=== PATIENT | female | born 1940 | race Caucasian/White ===

== ENCOUNTER 2016-10-16 16:33 | Observation (INO) | payer MEDICARE ==
[~2016-10-16] VITALS: Ht 157.5 cm; Wt 107.0 kg
[2016-10-16] MEDS ORDERED: ASPIRIN 81MG TABLET PO STA (17:47)
[2016-10-16 18:31] LABS: BASOPHILS % 0.7 % (0.0-2.0); EOSINOPHILS % 1.5 % (0.0-5.0); HEMATOCRIT. 51.5 % (36.0-48.0); HEMOGLOBIN. 17.8 g/dL (12.0-16.0); LYMPHOCYTES % 26.4 % (20.0-50.0); MEAN CORPUSCULAR HEMOGLOBIN 31.2 pg (28.0-32.0); MEAN CORPUSCULAR VOLUME 90.3 fL (81.0-99.0); MEAN PLATELET VOLUME 8.7 fl (7.4-10.4); MONOCYTES % 7.9 % (2.0-8.0); NEUTROPHILS % 63.5 % (40.0-76.0); PLATELET 166 x1000/uL (130-400); RED CELL DISTRIBUTION WIDTH 13.4 % (11.6-14.6)
[2016-10-16 18:33] LABS: CARBON DIOXIDE 27 mEq/L (21-32); CHLORIDE 106 mEq/L (98-107); TROPONIN I < 0.02 ng/mL (0.00-0.04)
[2016-10-16 18:34] LABS: INR 1.7; PARTIAL THROMBOPLASTIN TIME 36.6 sec (24.0-34.0); PROTHROMBIN TIME 17.4 sec
[2016-10-16] MEDS ORDERED: ONDANSETRON HCL 4MG/2ML VIAL IV STA (21:04)
[2016-10-16] MEDS ORDERED: MORPHINE SULFATE 4 MG/ML CPJ (NOT FOR IM USE) IV STA (21:04)
[2016-10-16] MEDS ORDERED: NITROGLYCERIN 0.4MG TABLET SL SL PRN (21:15)
[2016-10-16 22:00] VITALS: BP 135/85
[2016-10-16] MEDS ORDERED: WARF5TAB73 PO (22:19)
[2016-10-16] MEDS ORDERED: DILT120C11 PO (22:19)
[2016-10-16] MEDS ORDERED: ONDANSETRON HCL 4MG/2ML VIAL IV PRN (23:30)
[2016-10-16] MEDS ORDERED: MORPHINE SULFATE 2 MG/ML CPJ (NOT FOR IM USE) IV PRN (23:30)
[2016-10-16] MEDS: OMEPRAZOLE 20MG CAPSULE EXTENDED RELEASE PO SCH (23:48)
[2016-10-17] VITALS (7 sets, daily range): BP systolic 101–130; BP diastolic 56–86
[2016-10-17 00:39] LABS: CREATINE KINASE 47 IU/L (26-192); CREATINE KINASE MB FRACTION 0.9 ng/mL (0.5-3.6); TROPONIN I < 0.02 ng/mL (0.00-0.04)
[2016-10-17] MEDS: OMEPRAZOLE 20MG CAPSULE EXTENDED RELEASE PO SCH (06:17)
[2016-10-17 07:24] LABS: CARBON DIOXIDE 28 mEq/L (21-32); LDL CHOLESTEROL 80 mg/dL (5-100)
[2016-10-17 07:39] LABS: CHLORIDE 104 mEq/L (98-107); CREATINE KINASE 41 IU/L (26-192); CREATINE KINASE MB FRACTION 0.8 ng/mL (0.5-3.6); HDL CHOLESTEROL 30 mg/dL (40-59); TROPONIN I < 0.02 ng/mL (0.00-0.04)
[2016-10-17 07:57] LABS: EOSINOPHILS % 1.6 % (0.0-5.0); HEMATOCRIT. 47.5 % (36.0-48.0); HEMOGLOBIN. 16.5 g/dL (12.0-16.0); LYMPHOCYTES % 28.5 % (20.0-50.0); MEAN CORPUSCULAR HEMOGLOBIN 31.7 pg (28.0-32.0); MEAN CORPUSCULAR VOLUME 91.1 fL (81.0-99.0); MEAN PLATELET VOLUME 9.1 fl (7.4-10.4); MONOCYTES % 9.7 % (2.0-8.0); NEUTROPHILS % 59.2 % (40.0-76.0); PLATELET 159 x1000/uL (130-400); RED BLOOD CELL COUNT 5.21 mill/uL (4.2-5.4); RED CELL DISTRIBUTION WIDTH 13.6 % (11.6-14.6)
[2016-10-17] MEDS: ASPIRIN 81MG TABLET PO SCH (08:04)
[2016-10-17] MEDS: DILTIAZEM HCL 120MG CAPSULE CD 24HR PO SCH (08:06)
[2016-10-17] MEDS ORDERED: ACETAMINOPHEN 325MG TABLET PO PRN (14:30)
[2016-10-17 16:00] LABS: CREATINE KINASE 59 IU/L (26-192); CREATINE KINASE MB FRACTION 1.3 ng/mL (0.5-3.6); TROPONIN I < 0.02 ng/mL (0.00-0.04)
[2016-10-17] MEDS ORDERED: WARFARIN SODIUM 5MG TABLET PO NR (18:00)
[2016-10-18] VITALS: BP 109/62
[2016-10-18 04:00] VITALS: BP 112/70
[2016-10-18 05:14] LABS: INR 2.1; PROTHROMBIN TIME 21.6 sec
[2016-10-18] MEDS ORDERED: FAMOTIDINE 20MG TABLET PO SCH (06:45)
[2016-10-18 08:00] VITALS: BP 134/70
[2016-10-18] MEDS: ASPIRIN 81MG TABLET PO SCH (09:00)
[2016-10-18] MEDS: DILTIAZEM HCL 120MG CAPSULE CD 24HR PO SCH (10:15)
[2016-10-18 12:00] VITALS: BP 141/94
[2016-10-18] MEDS ORDERED: REGADENOSON 0.4 MG/5 ML IV NR (14:45)
[2016-10-18 15:01] VITALS: BP 125/57
[2016-10-18 16:00] VITALS: BP 125/57
[2016-10-18] MEDS ORDERED: WARFARIN SODIUM 5MG TABLET PO NR (18:00)
== END 2016-10-18 15:50 | disposition home or self-care (01) ==
LOC: EDBEDREQ 19:12 → ENRESERV 19:16 → ER 20:20 → INTOOBSV 22:14 → 5WST 22:14
PROVIDERS: ADMIT Internal Medicine; ATTEND Internal Medicine
DX: R07.2 Precordial pain (principal); F41.9 Anxiety disorder, unspecified; I50.32 Chronic diastolic (congestive) heart failure; I48.2 Chronic atrial fibrillation; J98.11 Atelectasis; I11.0 Hypertensive heart disease with heart failure; R51 Headache; R42 Dizziness and giddiness; E66.9 Obesity, unspecified; Z79.01 Long term (current) use of anticoagulants
CPT/HCPCS: 36415; 70450; 71010; 78452; 80048; 80053; 80061; 82550; 82553; 83880; 84484; 85025; 85379; 85610; 85730; 93005; 93017; 93306; 96374; 96375; 96376; 99285; A9500; G0378; J2270; J2405

== ENCOUNTER 2017-10-05 22:05 | Inpatient (IN) | payer MEDICARE ==
[~2017-10-05] VITALS: Ht 160 cm; Wt 104.3 kg
[~2017-10-05 22:05] MED LIST: DILT120C11 PO; WARF-53 PO
[2017-10-05] MEDS ORDERED: ASPIRIN 81MG TABLET PO ONE (23:45)
[2017-10-05] MEDS ORDERED: NITROGLYCERIN 0.4MG TABLET SL SL PRN (23:45)
[2017-10-06 00:21] LABS: BASOPHILS % 1.2 % (0.0-2.0); EOSINOPHILS % 2.2 % (0.0-5.0); HEMOGLOBIN. 16.7 g/dL (12.0-16.0); LYMPHOCYTES % 25.6 % (20.0-50.0); MEAN CORPUSCULAR HEMOGLOBIN 31.8 pg (28.0-32.0); MEAN CORPUSCULAR VOLUME 89.7 fL (81.0-99.0); MEAN PLATELET VOLUME 8.7 fl (7.4-10.4); MONOCYTES % 9.3 % (2.0-8.0); NEUTROPHILS % 61.7 % (40.0-76.0); PLATELET 163 x1000/uL (130-400); RED BLOOD CELL COUNT 5.24 mill/uL (4.2-5.4); RED CELL DISTRIBUTION WIDTH 13.6 % (11.6-14.6)
[2017-10-06 00:26] LABS: CHLORIDE 108 mEq/L (98-107)
[2017-10-06 00:28] LABS: INR 1.5; PROTHROMBIN TIME 16.1 sec (9.4-11.6)
[2017-10-06] MEDS ORDERED: ENOXAPARIN 100MG/ML SYR SUBCUT NR (03:30)
[2017-10-06 05:49] VITALS: BP 115/60
[2017-10-06 05:50] VITALS: BP 115/60
[2017-10-06 08:00] VITALS: BP 116/71
[2017-10-06] MEDS ORDERED: ACETAMINOPHEN 325MG TABLET PO PRN (08:15)
[2017-10-06] MEDS ORDERED: WARFARIN SODIUM 5MG TABLET PO SCH ×2 (09:00→18:00)
[2017-10-06 12:00] VITALS: BP 118/53
[2017-10-06 16:00] VITALS: BP 127/52
[2017-10-06] MEDS: SODIUM CHLORIDE 0.9% INJ 3ML FLUSH IVF SCH ×2 (16:47→21:15)
[2017-10-06] MEDS: POTASSIUM CHLORIDE 20MEQ TABLET SR PO SCH (18:03)
[2017-10-06 20:00] VITALS: BP 124/35
[2017-10-07] VITALS: BP 103/49
[2017-10-07 04:00] VITALS: BP 95/37
[2017-10-07] MEDS: SODIUM CHLORIDE 0.9% INJ 3ML FLUSH IVF SCH ×2 (06:00→14:46)
[2017-10-07 06:39] LABS: INR 1.9; PROTHROMBIN TIME 20.1 sec (9.4-11.6)
[2017-10-07 06:53] LABS: CHLORIDE 106 mEq/L (98-107)
[2017-10-07 06:57] LABS: BASOPHILS % 0.8 % (0.0-2.0); EOSINOPHILS % 2.6 % (0.0-5.0); HEMATOCRIT. 47.8 % (36.0-48.0); LYMPHOCYTES % 30.4 % (20.0-50.0); MEAN CORPUSCULAR HEMOGLOBIN 32.2 pg (28.0-32.0); MEAN CORPUSCULAR VOLUME 90.7 fL (81.0-99.0); MEAN PLATELET VOLUME 9.2 fl (7.4-10.4); MONOCYTES % 10.8 % (2.0-8.0); NEUTROPHILS % 55.4 % (40.0-76.0); PLATELET 160 x1000/uL (130-400); RED BLOOD CELL COUNT 5.27 mill/uL (4.2-5.4); RED CELL DISTRIBUTION WIDTH 14.1 % (11.6-14.6)
[2017-10-07 07:28] LABS: LDL CHOLESTEROL 63 mg/dL (5-100)
[2017-10-07 07:29] LABS: HDL CHOLESTEROL 27 mg/dL (40-59)
[2017-10-07 08:00] VITALS: BP 121/47
[2017-10-07] MEDS: POTASSIUM CHLORIDE 20MEQ TABLET SR PO SCH (08:00)
[2017-10-07] MEDS ORDERED: NITROGLYCERIN 0.4MG TABLET SL SL PRN (11:30)
[2017-10-07 12:00] VITALS: BP 116/56
[2017-10-07 15:26] VITALS: BP 135/42
[2017-10-07 16:00] VITALS: BP 135/42
[2017-10-07] MEDS ORDERED: WARFARIN SODIUM 5MG TABLET PO NR (18:00)
== END 2017-10-07 16:40 | disposition home or self-care (01) | DRG 292 ==
LOC: ER 22:33 → 7WST 10-06 03:32 → EDBEDREQTM 10-06 03:35 → EDBEDREQ 10-06 03:35 → ENRESERV 10-06 03:50 → 6WST 10-06 05:40
PROVIDERS: ADMIT Internal Medicine; ATTEND Internal Medicine
DX: I50.21 Acute systolic (congestive) heart failure (principal); Z68.41 Body mass index [BMI] 40.0-44.9, adult; R55 Syncope and collapse; D75.1 Secondary polycythemia; I48.91 Unspecified atrial fibrillation; E66.9 Obesity, unspecified; I11.0 Hypertensive heart disease with heart failure; Z79.01 Long term (current) use of anticoagulants; Z79.899 Other long term (current) drug therapy
CPT/HCPCS: 36415; 71045; 80053; 80061; 83880; 84484; 85025; 85610; 85730; 93005; 96372; 99285; J1650

== ENCOUNTER 2024-08-06 17:11 | Emergency (ER) | payer MEDICARE ==
[~2024-08-06] VITALS: Ht 165.1 cm; Wt 82.0 kg
[~2024-08-06 17:11] MED LIST changes: +AMLO2.5T2 MT; +APIX5TAB MT; -DILT120C11 PO; +PROT40 MT; -WARF-53 PO
[2024-08-06 17:15] VITALS: BP 145/87; PULSE 75; RESP 18; TEMP 36.6; O2SAT 100
[2024-08-06] MEDS: FLUORESCEIN SODIUM 1MG/STRIP BOTHEYE ONE (18:04)
[2024-08-06] MEDS: TETRACAINE 0.5% OPHTH DROPS 4ML BOTHEYE ONE (18:04)
[2024-08-06] MEDS: BALANCED SALT IRRIG SOLN 15ML IR ONE (18:07)
[2024-08-06] MEDS ORDERED: OCUFLX EACHEYE (18:43)
[2024-08-06] MEDS ORDERED: CYCL15DR11 EACHEYE (18:43)
[2024-08-06] MEDS ORDERED: DEXT15DR5 EACHEYE (18:44)
== END 2024-08-06 18:49 | disposition home or self-care (01) ==
LOC: ER 17:11
DX: S05.01XA Injury of conjunctiva and corneal abrasion without foreign body, right eye, initial encounter (principal); S05.92XA Unspecified injury of left eye and orbit, initial encounter; S05.91XA Unspecified injury of right eye and orbit, initial encounter; Z79.899 Other long term (current) drug therapy; Z79.01 Long term (current) use of anticoagulants; I48.91 Unspecified atrial fibrillation; X58.XXXA Exposure to other specified factors, initial encounter; Y93.89 Activity, other specified; Y92.89 Other specified places as the place of occurrence of the external cause; Y99.8 Other external cause status
CPT/HCPCS: 99284